=== PATIENT | female | born 1970 | race Caucasian/White ===

== ENCOUNTER 2017-02-23 14:49 | Emergency (ER) | payer BC ==
[2011-07-16 09:50] VITALS: BMI 27.9
[2017-02-23 16:47] LABS: BASOPHILS 0.2 % (0-2); EOSINOPHILS 0.4 % (0-7); HEMATOCRIT 37.6 % (36.0-48.0); HEMOGLOBIN 12.6 g/dL (12-16); IMMATURE GRANULOCYTES 0.3 % (0-5); LYMPHOCYTES 21.4 % (15-50); MCH 30.3 pg (26.0-34.0); MCHC 33.5 g/dL (31.0-37.0); MCV 90.4 fL (80.0-100.0); MEAN PLATELET VOLUME 9.7 fL (7.4-10.4); MONOCYTES 5.7 % (2-11); PLATELET COUNT 284 10x3/uL (130-400); RBC 4.16 10x6/uL (4.00-5.40); RDW 13.2 % (11.5-14.5); WBC 11.7 10x3/uL (4.8-10.8)
[2017-02-23 17:02] LABS: ALBUMIN 3.5 g/dL (3.4-5.0); ALKALINE PHOSPHATASE 108 U/L (46-116); ALT (SGPT) 25 U/L (10-68); BILIRUBIN - TOTAL 0.17 mg/dL (0.2-1.3); CALC OSMOLALITY 279 mosm/kg (275-300); CALCIUM 8.9 mg/dL (8.5-10.1); CARBON DIOXIDE 27.8 mmol/L (21.0-32.0); CHLORIDE - SERUM 104 mmol/L (98-107); CREATINE KINASE 54 UL (21-215); GLUCOSE 99 mg/dL (74-106); PROTEIN - SERUM 7.3 g/dL (6.4-8.2); SODIUM 141 mmol/L (136-145); UREA NITROGEN 11 mg/dL (7-18); eGFR NON AFRICAN AMERICAN 63 mL/min (90-120)
[2017-02-23 17:11] LABS: TROPONIN-I < 0.017 ng/mL (0.000-0.060)
[2017-02-23 17:52] LABS: APPEARANCE CLEAR (CLEAR); BILIRUBIN NEGATIVE (NEGATIVE); COLOR YELLOW (YELLOW); GLUCOSE NEGATIVE (NEGATIVE); KETONE NEGATIVE (NEGATIVE); LEUKOCYTE ESTERASE NEGATIVE (NEGATIVE); NITRITE NEGATIVE (NEGATIVE); PROTEIN NEGATIVE (NEGATIVE); UROBILINOGEN NORMAL (NORMAL)
== END 2017-02-23 19:26 | disposition home or self-care (01) ==
LOC: D.ER 14:49
PROVIDERS: Nurse Practitioner Family
DX: R53.1 Weakness (principal); T50.905A Adverse effect of unspecified drugs, medicaments and biological substances, initial encounter; Y92.89 Other specified places as the place of occurrence of the external cause; R42 Dizziness and giddiness; F31.89 Other bipolar disorder

== ENCOUNTER 2017-03-19 11:13 | Emergency (ER) | payer BC ==
[2011-07-16 09:50] VITALS: BMI 27.9
[2017-03-19 12:20] LABS: APPEARANCE CLEAR (CLEAR); BILIRUBIN NEGATIVE (NEGATIVE); COLOR STRAW (YELLOW); GLUCOSE NEGATIVE (NEGATIVE); KETONE NEGATIVE (NEGATIVE); LEUKOCYTE ESTERASE NEGATIVE (NEGATIVE); NITRITE NEGATIVE (NEGATIVE); PROTEIN NEGATIVE (NEGATIVE); SPECIFIC GRAVITY 1.005 (1.005-1.020); UROBILINOGEN NORMAL (NORMAL)
[2017-03-19 12:20] LABS: BASOPHILS 0.2 % (0-2); EOSINOPHILS 0.7 % (0-7); HEMATOCRIT 38.6 % (36.0-48.0); HEMOGLOBIN 13.3 g/dL (12-16); IMMATURE GRANULOCYTES 0.4 % (0-5); MCH 30.8 pg (26.0-34.0); MCHC 34.5 g/dL (31.0-37.0); MCV 89.4 fL (80.0-100.0); MEAN PLATELET VOLUME 9.6 fL (7.4-10.4); MONOCYTES 8.5 % (2-11); NEUTROPHILS 60.2 % (40-80); PLATELET COUNT 294 10x3/uL (130-400); RBC 4.32 10x6/uL (4.00-5.40); RDW 12.9 % (11.5-14.5)
[2017-03-19 12:23] LABS: HCG URINE NEGATIVE (NEGATIVE)
[2017-03-19 12:38] LABS: ALBUMIN 3.6 g/dL (3.4-5.0); ALKALINE PHOSPHATASE 101 U/L (46-116); ALT (SGPT) 24 U/L (10-68); BILIRUBIN - TOTAL 0.17 mg/dL (0.2-1.3); CALC OSMOLALITY 276 mosm/kg (275-300); CALCIUM 8.9 mg/dL (8.5-10.1); CARBON DIOXIDE 29.2 mmol/L (21.0-32.0); CHLORIDE - SERUM 102 mmol/L (98-107); CREATININE - SERUM 0.8 mg/dL (0.6-1.3); GLUCOSE 90 mg/dL (74-106); POTASSIUM - SERUM 4.2 mmol/L (3.5-5.1); PROTEIN - SERUM 7.6 g/dL (6.4-8.2); SODIUM 140 mmol/L (136-145); UREA NITROGEN 7 mg/dL (7-18); eGFR NON AFRICAN AMERICAN 82 mL/min (90-120)
[2017-03-19 12:49] LABS: CKMB 1.5 U/L (0.0-3.6); CREATINE KINASE 121 UL (21-215); TROPONIN-I < 0.017 ng/mL (0.000-0.060)
== END 2017-03-19 14:49 | disposition home or self-care (01) ==
LOC: D.ER 11:13
PROVIDERS: Family Medicine
DX: R42 Dizziness and giddiness (principal); R41.82 Altered mental status, unspecified; F31.89 Other bipolar disorder

== ENCOUNTER 2018-04-11 15:28 | Inpatient (IN) | payer SELFPAY ==
[~2018-04-11] VITALS: Ht 170.2 cm; Wt 77.1 kg
[2018-04-11] MEDS ORDERED: OMEPRAZOLE40 MG PO (15:33)
[2018-04-11 16:22] LABS: BASOPHILS 0.2 % (0-2); EOSINOPHILS 0.5 % (0-7); HEMATOCRIT 39.5 % (36.0-48.0); HEMOGLOBIN 14.1 g/dL (12-16); IMMATURE GRANULOCYTES 0.3 % (0-5); LYMPHOCYTES 26.8 % (15-50); MCH 31.5 pg (26.0-34.0); MCHC 35.7 g/dL (31.0-37.0); MCV 88.4 fL (80.0-100.0); MONOCYTES 6.6 % (2-11); NEUTROPHILS 65.6 % (40-80); PLATELET COUNT 287 10x3/uL (130-400); RBC 4.47 10x6/uL (4.00-5.40); RDW 13.1 % (11.5-14.5); WBC 12.8 10x3/uL (4.8-10.8)
[2018-04-11 17:08] LABS: APPEARANCE CLEAR (CLEAR); BILIRUBIN NEGATIVE (NEGATIVE); COLOR YELLOW (YELLOW); GLUCOSE NEGATIVE (NEGATIVE); KETONE NEGATIVE (NEGATIVE); NITRITE NEGATIVE (NEGATIVE); PROTEIN NEGATIVE (NEGATIVE); SPECIFIC GRAVITY 1.015 (1.005-1.020); UROBILINOGEN NORMAL (NORMAL)
[2018-04-11 17:10] LABS: BACTERIA FEW /hpf (NONE SEEN); WHITE CELLS - URINE 0-5 /hpf (0-5)
[2018-04-11 17:14] LABS: HCG URINE NEGATIVE (NEGATIVE)
[2018-04-11 17:26] LABS: ALKALINE PHOSPHATASE 90 U/L (46-116); ALT (SGPT) 32 U/L (10-68); BILIRUBIN - TOTAL 0.16 mg/dL (0.2-1.3); C-REACTIVE PROTEIN < 0.2 mg/dL (0.0-0.9); CALC OSMOLALITY 276 mosm/kg (275-300); CALCIUM 8.2 mg/dL (8.5-10.1); CARBON DIOXIDE 26.1 mmol/L (21.0-32.0); CHLORIDE - SERUM 107 mmol/L (98-107); CREATININE - SERUM 0.8 mg/dL (0.6-1.3); GLUCOSE 107 mg/dL (74-106); POTASSIUM - SERUM 3.9 mmol/L (3.5-5.1); PROTEIN - SERUM 6.4 g/dL (6.4-8.2); SODIUM 140 mmol/L (136-145); UREA NITROGEN 8 mg/dL (7-18); eGFR NON AFRICAN AMERICAN 82 mL/min (90-120)
[2018-04-11 22:20] LABS: BASOPHILS 0.2 % (0-2); EOSINOPHILS 0.6 % (0-7); HEMATOCRIT 39.2 % (36.0-48.0); HEMOGLOBIN 13.4 g/dL (12-16); IMMATURE GRANULOCYTES 0.5 % (0-5); LYMPHOCYTES 24.9 % (15-50); MCH 30.7 pg (26.0-34.0); MCHC 34.2 g/dL (31.0-37.0); MCV 89.9 fL (80.0-100.0); MEAN PLATELET VOLUME 10.3 fL (7.4-10.4); MONOCYTES 7.1 % (2-11); NEUTROPHILS 66.7 % (40-80); PLATELET COUNT 272 10x3/uL (130-400); RBC 4.36 10x6/uL (4.00-5.40); RDW 13.1 % (11.5-14.5); WBC 13.1 10x3/uL (4.8-10.8)
[2018-04-11 22:54] VITALS: BP 136/81; BMI 26.7
[2018-04-12 04:49] VITALS: BP 93/59
[2018-04-12 05:03] LABS: BASOPHILS 0.2 % (0-2); EOSINOPHILS 0.7 % (0-7); HEMATOCRIT 34.1 % (36.0-48.0); HEMOGLOBIN 11.7 g/dL (12-16); IMMATURE GRANULOCYTES 0.3 % (0-5); LYMPHOCYTES 26.5 % (15-50); MCH 30.9 pg (26.0-34.0); MCHC 34.3 g/dL (31.0-37.0); MEAN PLATELET VOLUME 10.6 fL (7.4-10.4); MONOCYTES 8.4 % (2-11); NEUTROPHILS 63.9 % (40-80); PLATELET COUNT 239 10x3/uL (130-400); RBC 3.79 10x6/uL (4.00-5.40); RDW 13.2 % (11.5-14.5); WBC 12.2 10x3/uL (4.8-10.8)
[2018-04-12 09:11] VITALS: BP 94/60
[2018-04-12 11:04] VITALS: BMI 26.6
[2018-04-12 11:32] VITALS: Ht 170.2 cm; Wt 77.1 kg
[2018-04-12 12:18] VITALS: BP 102/63
[2018-04-12 18:53] VITALS: BP 88/58
[2018-04-12 23:44] VITALS: BP 93/45
[2018-04-13 02:47] VITALS: BP 101/32
[2018-04-13 05:13] LABS: BASOPHILS 0.2 % (0-2); EOSINOPHILS 0.7 % (0-7); HEMATOCRIT 34.4 % (36.0-48.0); HEMOGLOBIN 11.8 g/dL (12-16); IMMATURE GRANULOCYTES 0.3 % (0-5); LYMPHOCYTES 27.7 % (15-50); MCHC 34.3 g/dL (31.0-37.0); MCV 90.3 fL (80.0-100.0); MEAN PLATELET VOLUME 10.8 fL (7.4-10.4); MONOCYTES 7.1 % (2-11); PLATELET COUNT 232 10x3/uL (130-400); RBC 3.81 10x6/uL (4.00-5.40); RDW 13.1 % (11.5-14.5); WBC 11.8 10x3/uL (4.8-10.8)
[2018-04-13 05:17] LABS: CALC OSMOLALITY 281 mosm/kg (275-300); CALCIUM 7.8 mg/dL (8.5-10.1); CARBON DIOXIDE 28.4 mmol/L (21.0-32.0); CHLORIDE - SERUM 106 mmol/L (98-107); CREATININE - SERUM 0.8 mg/dL (0.6-1.3); GLUCOSE 99 mg/dL (74-106); POTASSIUM - SERUM 3.6 mmol/L (3.5-5.1); SODIUM 142 mmol/L (136-145); UREA NITROGEN 9 mg/dL (7-18); eGFR NON AFRICAN AMERICAN 82 mL/min (90-120)
[2018-04-13 08:32] VITALS: BP 101/68
[2018-04-13 11:54] VITALS: BP 99/55
[2018-04-13 17:38] VITALS: BP 103/69
[2018-04-13 20:00] VITALS: BP 110/62
[2018-04-14] VITALS: BP 111/65
[2018-04-14 04:00] VITALS: BP 115/64
[2018-04-14 04:34] LABS: BASOPHILS 0.2 % (0-2); EOSINOPHILS 0.7 % (0-7); HEMOGLOBIN 10.9 g/dL (12-16); IMMATURE GRANULOCYTES 0.2 % (0-5); MCH 30.5 pg (26.0-34.0); MCHC 34.1 g/dL (31.0-37.0); MCV 89.6 fL (80.0-100.0); MEAN PLATELET VOLUME 10.4 fL (7.4-10.4); MONOCYTES 7.1 % (2-11); NEUTROPHILS 55.8 % (40-80); PLATELET COUNT 214 10x3/uL (130-400); RBC 3.57 10x6/uL (4.00-5.40); RDW 12.9 % (11.5-14.5)
[2018-04-14 04:43] LABS: WBC 8.4 10x3/uL (4.8-10.8)
[2018-04-14 04:45] LABS: CALC OSMOLALITY 279 mosm/kg (275-300); CARBON DIOXIDE 29.2 mmol/L (21.0-32.0); CHLORIDE - SERUM 107 mmol/L (98-107); CREATININE - SERUM 0.7 mg/dL (0.6-1.3); GLUCOSE 132 mg/dL (74-106); POTASSIUM - SERUM 3.5 mmol/L (3.5-5.1); SODIUM 140 mmol/L (136-145); UREA NITROGEN 9 mg/dL (7-18); eGFR NON AFRICAN AMERICAN > 90 mL/min (90-120)
[2018-04-14 09:53] VITALS: BP 122/64
[2018-04-22 22:15] LABS: OVA + PARASITE EXAM Final report (())
== END 2018-04-14 11:46 | disposition home or self-care (01) | DRG 392 ==
LOC: D.ER 15:28 → D.MS 19:44 → D.EDHOLD 19:44 → D.MS 20:13
PROVIDERS: Emergency Medicine; Internal Medicine Gastroenterology; Internal Medicine Nephrology
DX: A09 Infectious gastroenteritis and colitis, unspecified (principal); D62 Acute posthemorrhagic anemia; K52.9 Noninfective gastroenteritis and colitis, unspecified; K21.9 Gastro-esophageal reflux disease without esophagitis; F17.200 Nicotine dependence, unspecified, uncomplicated

== ENCOUNTER 2018-08-27 15:27 | Inpatient (IN) | payer OTHER ==
[~2018-08-27] VITALS: Ht 170.2 cm; Wt 78.6 kg
[~2018-08-27 15:27] MED LIST: OMEPRAZOLE40 MG PO
[2018-08-27] MEDS ORDERED: LISINOPRIL5 MG PO (15:58)
[2018-08-27] MEDS ORDERED: AMBIEN10 MG PO (15:58)
[2018-08-27] MEDS ORDERED: NORCO 10-325 TA1 TAB PO (15:59)
[2018-08-27 16:55] LABS: BASOPHILS 0.3 % (0-2); EOSINOPHILS 0.7 % (0-7); HEMATOCRIT 39.6 % (36.0-48.0); HEMOGLOBIN 13.9 g/dL (12-16); IMMATURE GRANULOCYTES 0.3 % (0-5); LYMPHOCYTES 30.5 % (15-50); MCH 31.2 pg (26.0-34.0); MCHC 35.1 g/dL (31.0-37.0); MEAN PLATELET VOLUME 10.8 fL (7.4-10.4); MONOCYTES 8.6 % (2-11); NEUTROPHILS 59.6 % (40-80); RBC 4.45 10x6/uL (4.00-5.40); RDW 12.6 % (11.5-14.5); WBC 10.5 10x3/uL (4.8-10.8)
[2018-08-27 17:02] LABS: PLATELET COUNT 259 10x3/uL (130-400)
[2018-08-27 17:06] LABS: ALBUMIN 3.1 g/dL (3.4-5.0); ALKALINE PHOSPHATASE 101 U/L (46-116); ALT (SGPT) 24 U/L (10-68); BILIRUBIN - TOTAL 0.11 mg/dL (0.2-1.3); CALC OSMOLALITY 282 mosm/kg (275-300); CALCIUM 8.6 mg/dL (8.5-10.1); CARBON DIOXIDE 29.3 mmol/L (21.0-32.0); CHLORIDE - SERUM 105 mmol/L (98-107); CREATININE - SERUM 0.8 mg/dL (0.6-1.3); GLUCOSE 100 mg/dL (74-106); POTASSIUM - SERUM 3.6 mmol/L (3.5-5.1); SODIUM 143 mmol/L (136-145); UREA NITROGEN 7 mg/dL (7-18); eGFR NON AFRICAN AMERICAN 82 mL/min (90-120)
[2018-08-27 17:18] LABS: CKMB 0.3 U/L (0.0-3.6); CREATINE KINASE 48 UL (21-215); TROPONIN-I < 0.017 ng/mL (0.000-0.060)
--- NOTE | 2018-08-27 17:18 | NUR ---
PT LEAVING THE ED AT THIS TIME VIA STRETCHER FOR ORDERED PROCEDURE. CONSENT FORM COMPLETED AND GIVEN TO IR STAFF.
[2018-08-27 17:39] LABS: APPEARANCE CLEAR (CLEAR); BILIRUBIN NEGATIVE (NEGATIVE); COLOR YELLOW (YELLOW); GLUCOSE NEGATIVE (NEGATIVE); KETONE NEGATIVE (NEGATIVE); NITRITE NEGATIVE (NEGATIVE); PROTEIN NEGATIVE (NEGATIVE); UROBILINOGEN NORMAL (NORMAL)
[2018-08-27 17:43] LABS: APTT 26.9 SECONDS (22.8-39.4); INR 0.93 (0.85-1.17); PROTIME 11.9 SECONDS (11.6-15.0)
--- NOTE | 2018-08-27 17:53 | NUR ---
PT RETURNED TO THE ED VIA STRETCHER AT THIS TIME.
[2018-08-27 18:50] LABS: APPEARANCE - CSF CLEAR; RBC - CSF 4 cmm (0-0)
--- NOTE | 2018-08-27 19:14 | NUR ---
THIS NURSE ATTEMPTED TO CALL REPORT TO RECEIVING NURSE, WAS TOLD NO ASSIGNED NURSE AT THIS TIME TO TAKE REPORT. HAND-OFF REPORT GIVEN TO CRYSTAL BECERRIL IN THE ED.
[2018-08-27 19:17] LABS: GLUCOSE - CSF 68 MG/DL (40-75); PROTEIN - CSF 34 MG/DL (12-60)
--- NOTE | 2018-08-27 20:13 | NUR ---
BP 129/69 HR 81 TEMP 101 RR 20 95% PULSE OX
--- NOTE | 2018-08-27 21:17 | NUR ---
PT ADVISED ON ROOM NUMBER AT THIS TIME
[2018-08-27 21:19] VITALS: BP 128/84
--- NOTE | 2018-08-27 22:49 | NUR ---
PT TO FLOOR BY WHEELCHAIR FROM ER. PT C/O PAIN IN NECK AND AND HEAD PAIN OF A 7 ON A 10 POINT PAIN SCALE. DEMEROL GIVEN TO IV IN L HAND. SOLU-MEDROL GIVEN TO IV IN L HAND. ROOM AIR. VITALS STABLE. ISOLATION PRECAUTIONS D/C. LUNG SOUNDS CLEAR. TELE APPLIED. NORMAL SINUS. NO FURTHER CONCERNS AT THIS TIME. BED LOWERED AND LOCKED. CL IN REACH. WILL CONTINUE TO MONITOR.
[2018-08-27 23:50] VITALS: BP 93/52
[2018-08-28 01:14] VITALS: BP 116/70; Ht 170.2 cm; Wt 78.6 kg
[2018-08-28 03:45] VITALS: BP 99/60
[2018-08-28 05:38] LABS: BASOPHILS 0.1 % (0-2); EOSINOPHILS 0 % (0-7); HEMATOCRIT 36.2 % (36.0-48.0); HEMOGLOBIN 12.6 g/dL (12-16); IMMATURE GRANULOCYTES 0.2 % (0-5); LYMPHOCYTES 5.1 % (15-50); MCH 31.3 pg (26.0-34.0); MCHC 34.8 g/dL (31.0-37.0); MCV 89.8 fL (80.0-100.0); MEAN PLATELET VOLUME 11.1 fL (7.4-10.4); MONOCYTES 1.4 % (2-11); NEUTROPHILS 93.2 % (40-80); PLATELET COUNT 222 10x3/uL (130-400); RBC 4.03 10x6/uL (4.00-5.40); RDW 12.7 % (11.5-14.5); WBC 12.1 10x3/uL (4.8-10.8)
[2018-08-28 06:00] LABS: ALBUMIN 2.6 g/dL (3.4-5.0); ALKALINE PHOSPHATASE 83 U/L (46-116); ALT (SGPT) 23 U/L (10-68); BILIRUBIN - TOTAL 0.14 mg/dL (0.2-1.3); CALCIUM 8.8 mg/dL (8.5-10.1); CARBON DIOXIDE 25.1 mmol/L (21.0-32.0); CHLORIDE - SERUM 105 mmol/L (98-107); CREATININE - SERUM 0.7 mg/dL (0.6-1.3); POTASSIUM - SERUM 3.9 mmol/L (3.5-5.1); PROTEIN - SERUM 6.2 g/dL (6.4-8.2); SODIUM 138 mmol/L (136-145); eGFR NON AFRICAN AMERICAN > 90 mL/min (90-120)
[2018-08-28 06:17] LABS: CALC OSMOLALITY 277 mosm/kg (275-300); GLUCOSE 157 mg/dL (74-106); UREA NITROGEN 10 mg/dL (7-18)
--- NOTE | 2018-08-28 07:30 | NUR ---
RECEIVED A/A/OX4. DENIES ANY PAIN AT THIS TIME BUT STATES SHE DOES HAVE SOME SORENESS WHERE THE SPINAL TAP WAS DONE. NO REQUESTS VOICED. BED IN LOW POSITION, SIDERAILS UP X 2 AND CALL LIGHT IN REACH. ASSESSMENT COMPLETED. IVS PATENT TO BOTH HANDS WITHOUT ANY SWELLING OR EDEMA.
[2018-08-28 08:00] VITALS: BP 95/54
[2018-08-28] MEDS ORDERED: OMNICEF300 MG PO (12:12)
[2018-08-28] MEDS ORDERED: PREDNISONE10 MG PO (12:12)
--- NOTE | 2018-08-28 13:17 | NUR ---
DISCHARGE INSTRUCTIONS REVIEWED WITH PT AND VOICES UNDERSTANDING WITH NO QUESTIONS. LEFT FLOOR WITH PERSONAL BELONGINGS VIA W/C AND LEFT FACILITY VIA PRIVATE VEHICLE WITH A FAMILY MEMBER.
--- NOTE | 2018-08-30 07:55 | MORECARE ---
CASE MANAGEMENT DISCHARGE SUMMARY PATIENT: ROMULO HOUSER UNIT: [id number] ADM DATE: 08/27/18 AGE: 47 : 72 SEX: F ROOM/BED: D.2101 AUTHOR: PAULIE KNIGHT PHYSICIAN: REFERRING PHYSICIAN: CESAR ALMAZAN MD DATE OF SERVICE: 08/30/18 Discharge Plan Patient Name: ROMUL[facility]ER [facility] [facility] 1970 Planned Disposition: Home Anticipated Discharge Date: 08/28/18 Discharge Date: 08/28/2018 Expected LOS: 1 Initial Reviewer: [email or web address] Initial Review Date: 08/30/2018 Generated: 08/30/18 8:55 am Patient Name: ROMULO HOUSER Page [id number] at 0755 All edits/amendments must be made on the electronic document DICTATION DATE: 08/30/18 0755 SLIDER ASSEMBLER: NABILA 08/30/18 0755 RPT#: [id number] DC DATE:08/28/18 STATUS: DIS IN [facility] [address] [place] [address] END OF REPORT
[2018-08-31 20:08] LABS: HSV 1 DNA (PCR) Negative (Negative); HSV 2 DNA (PCR) Negative (Negative)
--- NOTE | 2018-09-01 08:26 | NUR ---
LATE ENTRY FOR 08/27/18. ORDERED ROCEPHIN THAT WAS INITIATED AT 1819, COMPLETE AT 1850.
[2018-09-02 15:31] LABS: CSFE - ALBUMIN 59.2 % (56.8-76.4); CSFE - ALPHA-1-GLOBULIN 4.4 % (1.1-6.6); CSFE - BETA GLOBULIN 16.3 % (7.3-17.9); CSFE - GAMMA GLOBULIN 5.4 % (3.0-13.0); CSFE - M-SPIKE Not Observed % (Not Observed); CSFE - PRE-ALBUMIN 5.8 % (2.2-7.1)
[2018-09-03 06:18] LABS: EBV PCR CSF Negative (Negative)
[2018-09-04 21:06] LABS: ENTEROVIRUS RT-PCR Negative (Negative)
== END 2018-08-28 13:18 | disposition home or self-care (01) | DRG 951 ==
LOC: D.ER 15:27 → D.EDHOLD 16:49 → D.M2 21:27
PROVIDERS: Family Medicine; Student in an Organized Health Care Education/Training Program; ADMIT Family Medicine
PROC: 009U3ZZ Drainage of Spinal Canal, Percutaneous Approach (ICD-10-PCS; principal; 2018-08-27)
DX: Z20.828 Contact with and (suspected) exposure to other viral communicable diseases (principal); R51 Headache; R50.9 Fever, unspecified; E86.0 Dehydration; M54.2 Cervicalgia; I10 Essential (primary) hypertension; R00.0 Tachycardia, unspecified; F17.210 Nicotine dependence, cigarettes, uncomplicated

== ENCOUNTER 2020-05-09 05:20 | Day surgery (SDC) | payer MEDICAID ==
[~2020-05-09] VITALS: Ht 170.2 cm; Wt 71.2 kg
--- NOTE | ~2020-05-09 | OP ---
PATIENT NAME: ROMULO RODRIGUEZ MEDICAL RECORD: [id number] :72 LOCATION:[facility] ADMISSION DATE: SURGEON: CHASITY LAKHANI MD DATE OF OPERATION: 05/09/2020 PREOPERATIVE DIAGNOSES: 1. Ganglion cyst, left wrist. 2. Left scaphoid-trapezium arthritis. POSTOPERATIVE DIAGNOSES: 1. Ganglion cyst, left wrist. 2. Left scaphoid-trapezium arthritis. PROCEDURE PERFORMED: 1. Excision of ganglion cyst, left volar wrist. 2. Left scaphoid-trapezium injection under fluoroscopy. INDICATIONS FOR PROCEDURE: Ms. Rodriguez is a 49-year-old female with a history of left thumb pain and has had a cyst developing now for the last few months. Cyst appears to involve the tendons along the volar radial wrist. She is also noted to have arthritis at the STT joint around the thumb. I talked with her about options for conservative versus surgical management. She has elected to proceed with surgery for excision of the cyst and injection at the STT joint. Risks, benefits, and alternatives of surgery were discussed with the patient and consent was obtained. DESCRIPTION OF PROCEDURE: The patient was met in the holding area where her identity and confirmation of procedure was performed. Left upper extremity was marked. She was taken to the operating room where she was placed supine on the operating table and anesthesia was administered. A tourniquet was applied to left arm and left arm was prepped and draped in a sterile fashion. The patient received preoperative antibiotics and time-out was performed before initiating the case. On initiation of the case, the arm was exsanguinated and the tourniquet was raised. Total tourniquet time was 21 minutes. A volar approach was performed for the ganglion cyst excision. Incision was made over the FCR tendon near the level of the wrist. The cyst was easily visualized once dissecting through the skin and subcutaneous tissues. We continued our dissection around the cyst that appeared to be incorporated into the tendon sheaths around the FCR tendon. The capsule was violated distally. We were then able to remove the remainder of the capsule and its extension radially. Tourniquet was let down. Hemostasis was obtained with bipolar cautery. Wound was irrigated thoroughly with saline. Deep tissues were then closed with Vicryl suture and skin was closed with Prolene. We then performed a left scaphoid-trapezium injection under fluoroscopy. A 22-gauge needle was then inserted into the joint and it was then injected with 0.5 mL 1% lidocaine, 0.5 mL Kenalog 40. A sterile dressing was then applied. The patient was placed into a padded thumb spica splint. She was turned back over to anesthesia. She was awakened, extubated, and taken to recovery room in stable condition. POSTOPERATIVE PLAN: The patient is going to return home with her family today. She needs to leave the splint in place until followup: We will plan to see her back in 2 weeks. OPERATIVE REPORT [id number] ROMULO RODRIGUEZ ANESTHESIA: General. COMPLICATIONS: None. ESTIMATED BLOOD LOSS: 10 mL. NTS:[id number] Voice Confirmation ID: [id number] DOCUMENT ID: [id number] CHASITY LAKHANI MD CC: [id number] DICTATION DATE: 05/09/20918 SOFTWARE INTEGRATION DEVELOPER: 05/09/201908 [facility] 05/09/20 [facility] [address] [place] [address]
[~2020-05-09 05:20] MED LIST changes: +AMBIEN10 MG PO; +CELEXA10 MG PO; +GEMFIBROZIL600 MG PO; +LISINOPRIL5 MG PO; +MOBIC7.5 MG PO; +NORCO 10-325 TA1 TAB PO; +OMNICEF300 MG PO; +PREDNISONE10 MG PO
[2020-05-09 06:08] LABS: HEMATOCRIT 39.5 % (36.0-48.0); HEMOGLOBIN 13.7 g/dL (12-16); MCH 31.9 pg (26.0-34.0); MCHC 34.7 g/dL (31.0-37.0); MCV 91.9 fL (80.0-100.0); MEAN PLATELET VOLUME 9.4 fL (7.4-10.4); RBC 4.3 10x6/uL (4.00-5.40); RDW 12.7 % (11.5-14.5); WBC 7.6 10x3/uL (4.8-10.8)
[2020-05-09 06:32] VITALS: BP 112/72; Ht 170.2 cm; Wt 71.2 kg
[2020-05-09] MEDS ORDERED: ATIVAN0.5 MG PO (06:32)
== END 2020-05-09 10:50 | disposition home or self-care (01) ==
LOC: D.OPS 05:20
PROVIDERS: Anesthesiology; ATTEND Orthopaedic Surgery
DX: M67.432 Ganglion, left wrist (principal); M25.532 Pain in left wrist; I10 Essential (primary) hypertension; K21.9 Gastro-esophageal reflux disease without esophagitis; M13.832 Other specified arthritis, left wrist